=== PATIENT | female | born 1990 | race Hispanic/Latino ===

== ENCOUNTER 2020-03-25 08:04 | Day surgery (SDC) | payer OTHER ==
--- NOTE | 2020-03-24 21:13 | Short Stay Summary ---
Short Stay Documentation Date of service: 03/25/20 Narrative H&P: 29-year-old -0-3-2 with undesired fertility. The patient is elected to undergo permanent sterilization. The patient is aware of other contraceptive options. Patient has been reassessed/reevaluated/re-examined. H&P has been reviewed. No interval changes. - History Principal diagnosis: Unwanted fertility Past Medical History: other (Gestational diabetes; -induced hypertens ion) Past Surgical History: Social history: - Allergies and Medications Current Medications: Allergies latex Allergy (Verified 03/18/20 17:06) Rash Home Medications Medication Instructions Recorded Confirmed Last Taken Type No Known Home Medications [No 03/18/20 03/18/20 Unknown History Reported Home Medications] Active Medications Acetaminophen (Acetaminophen 500 Mg Tab) 1,000 mg PO PREOP GIL Stop: 03/25/20 21:00 Celecoxib (Celecoxib 200 Mg Cap) 200 mg PO PREOP NR Stop: 03/25/20 21:00 Gabapentin (Gabapentin 300 Mg Cap) 300 mg PO PREOP NR Stop: 03/25/20 21:00 Lactated Ringer's (Lactated Ringers) 1,000 mls @ 100 mls/hr IV DIRECT GIL Stop: 03/25/20 23:59 Midazolam HCl (Midazolam 2 Mg/2 Ml Inj) 2 mg IV PREOP NR Stop: 03/25/20 21:00 - Physical exam General appearance: no acute distress Integumentary: no rash HEENT: Atraumatic Lungs: Clear to auscultation Breasts: deferred Heart: Regular rate Gastrointestinal: normal, organomegaly Rectal Exam: deferred - Brief post op/procedure progress note Date of procedure: 03/25/20 Pre-op diagnosis: Unwanted fertility Post-op diagnosis: same Procedure: Laparoscopy Bilateral salpingectomy Anesthesia: [place] Surgeon: JUNAID BOUDREAUX Estimated blood loss: minimal Pathology: list (Bilateral fallopian tubes) Specimen disposition: to lab Condition: stable - Hospital course Hospital course: The patient was admitted the day of surgery underwent a bilateral salpingectomy. Please see operative note for details of surgery. Postoperative course was uneventful. - Disposition Condition at discharge: Good - Discharge Diagnoses (1) Unwanted fertility Status: Acute Short Stay Discharge Plan Activity: other (Pelvic rest for 1 week) Diet: regular Additional Instructions: Follow-up is not required Follow-up as needed Prescriptions: Ibuprofen [Motrin] 800 mg PO Q8HR PRN #30 tablet PRN Reason: Pain , Severe (7-10) HYDROcodone/APAP 5-325 [[place] 5/325] 1 each PO Q6HR PRN #20 tablet PRN Reason: Pain
[~2020-03-25 08:04] MED LIST: ACETAMINOPHEN 500 MG TAB PO SCH; CELECOXIB 200 MG CAP PO NR; GABAPENTIN 300 MG CAP PO NR; LACTATED RINGERS 1,000 ML IV SCH; MIDAZOLAM 2 MG/2 ML INJ IV NR
[2020-03-25] MEDS ORDERED: ONDANSETRON 4 MG/2 ML INJ IV PRN (08:42)
[2020-03-25] MEDS ORDERED: HYDROmorphone 1 MG/1 ML INJ IV PRN (08:42)
--- NOTE | 2020-03-25 08:42 | Anesthesia Day of Surgery ---
Anesthesia Day of Surgery - Day of Surgery Patient Examined: Yes Patient H&P Reviewed: Yes Patient is NPO: Yes
--- NOTE | 2020-03-25 08:42 | Anesthesia Consultation ---
Anesthesia Consult and Med Hx Date of service: 03/25/20 - Airway Anesthetic Teeth Evaluation: Good ROM Head & Neck: Adequate Mental/Hyoid Distance: Adequate Mallampati Class: Class I Intubation Access Assessment: Good - Pulmonary Exam CTA: Yes - Cardiac Exam Cardiac Exam: RRR - Pre-Operative Health Status ASA Pre-Surgery Classification: ASA2 Proposed Anesthetic Plan: General - Pulmonary Hx Smoking: Yes (marijuana, last use 4 days ago) Hx Respiratory Symptoms: No - Cardiovascular System Hx Hypertension: No Hx Cardia Arrhythmia: No (palpitations during ; resolved) - Central Nervous System CVA: No Hx Psychiatric Problems: Yes (anxiety) - Gastrointestinal Hx Gastroesophageal Reflux Disease: No - Endocrine Hx Renal Disease: No Hx Liver Disease: No Hx Insulin Dependent Diabetes: No Hx Non-Insulin Dependent Diabetes: No Hx Thyroid Disease: No - Other Systems Hx Alcohol Use: Yes (Occas) Hx Substance Use: Yes (Marijuana daily, last use 4 days ago) Hx Obesity: Yes (BMI 31) - Additional Comments Anesthesia Medical History Comments: No hx anesthetic complications. Patient reports significant anxiety regarding medical monitoring equipment. BP and HR slightly elevated in preop, likely 2/2 anxiety.
[2020-03-25] MEDS ORDERED: fentaNYL 100 MCG/2 ML INJ ONE (09:42)
[2020-03-25] MEDS ORDERED: LIDOCAINE MPF (2%) 20 MG/1 ML VIAL 5 ML ONE (09:42)
[2020-03-25] MEDS ORDERED: propofoL 200 MG/20 ML VIAL IV ONE ×2 (09:42→10:36)
[2020-03-25] MEDS ORDERED: ROCURONIUM 50 MG/5 ML INJ IV ONE (09:42)
[2020-03-25] MEDS ORDERED: BUPIVACAINE/PF (0.5%) 5 MG/1 ML 10 ML VIAL INFILTRATI ONE ×2 (10:21→11:00)
[2020-03-25] MEDS ORDERED: KETOROLAC 30 MG/1 ML INJ ONE (11:00)
[2020-03-25] MEDS ORDERED: dexAMETHasone 20 MG/5 ML VIAL ONE (11:00)
[2020-03-25] MEDS ORDERED: ONDANSETRON 4 MG/2 ML INJ ONE (11:00)
[2020-03-25] MEDS ORDERED: GLYCOPYRROLATE 0.4 MG/2 ML INJ ONE (11:00)
[2020-03-25] MEDS ORDERED: SODIUM CHLORIDE 0.9% IRR 1,500 ML BOTTLE IR ONE (11:00)
--- NOTE | 2020-03-25 11:17 | Operative Report ---
Operative Report Operative Report: Date of surgery: March 25, 2020 Preoperative diagnosis: Unwanted fertility Postoperative diagnosis: Same as above Procedure: Laparoscopy; Bilateral salpingectomy; ovarian cystectomy Surgeon: Augustina Burr M.D. Anesthesia: General endotracheal anesthesia Estimated blood loss: Minimal Pathology: Bilateral fallopian tubes Findings: Normal uterus tubes. Left ovarian cyst Indication: 29-year-old -0-0-2 with unwanted fertility. Patient elected for permanent sterilization. Procedure: The patient was taken to the operating room and given general endotracheal anesthesia without complication. The patient is prepped and draped in a normal sterile fashion. A bivalve speculum was placed in the patient's vagina and a single-tooth tenaculum was placed on the anterior lip of the cervix .A uterine acorn manipulator was placed, and the bivalve speculum was then removed. Attention was then turned to the patient's abdomen where a 5 mm infraumbilical skin incision was then made. A Veress needle was placed and peritoneal entry was verified water-filled syringe. Insufflation of the peritoneal cavity was performed with CO2 gas. A 5 mm trocar was placed and the laparoscope was then inserted. The patient was then placed in Trendelenburg. A 7 mm suprapubic skin incision was then made. Under direct visualization a 7 mm trocar was then placed. An additional 5 mm left lateral trocar was also placed. General survey of the patient's abdomen revealed normal uterus and tubes. Findings of a left ovarian cyst. Cystotomy was performed of the left ovarian cyst. The fallopian tube was then followed out to the fimbriated end. The LigaSure device was used in order to coagulate and transect the mesosalpinx. The fallopian tube was excised from the adnexa. The fallopian tube was removed through the 7 mm trocar. This was performed on the contralateral side as well. The trocars were then removed. The pneumoperitoneum was then released. The 5 mm trocar laparoscope was then removed. The skin incisions were then closed with 4-0 Monocryl. The incisions were injected with quarter percent Marcaine. Dressings were applied to the incision. The vaginal instruments were then removed atraumatically. Then successfully extubated and taken to the recovery room. All sponge laps and needle counts were correct x2.
--- NOTE | 2020-03-25 12:26 | Post Anesthesia Evaluation ---
- Post Anesthesia Evaluation Patient Participated: Yes Airway Patent: Yes Stable Respiratory Function: Yes Nausea/Vomiting: No Temp > 96.8F: Yes Pain Manageable: Yes Adequeate Hydration: Yes Anesthesia Complications: No
[2020-03-25 12:28] VITALS: BP 128/77
== END 2020-03-25 08:05 | disposition home or self-care (01) ==
LOC: OR 08:04
PROVIDERS: ATTEND Obstetrics & Gynecology
DX: Z30.2 Encounter for sterilization (principal); F41.9 Anxiety disorder, unspecified; Z91.040 Latex allergy status; Z79.899 Other long term (current) drug therapy; Z87.891 Personal history of nicotine dependence; E66.9 Obesity, unspecified; Z98.891 History of uterine scar from previous surgery; Z72.89 Other problems related to lifestyle; Z98.890 Other specified postprocedural states; Z68.31 Body mass index [BMI] 31.0-31.9, adult
CPT/HCPCS: 58670; 58679; 81025; 88302; J1100; J1885; J2250; J2405; J2704; J3010; J7120